=== PATIENT | female | born 1985 | race Caucasian/White ===

== ENCOUNTER → 2018-08-16 | Outpatient (CLI) | payer OTHER ==
[~2018-08-16] MED LIST: CLON0.5T PO; DULO60CA6 PO; ESZO3TAB28 PO; NORE0.356 PO; OXCA300T3 PO
--- NOTE | 2018-08-17 05:22 | PAIN ---
DATE OF SERVICE: 08/16/2018 INITIAL CONSULTATION FOR PAIN CLINIC CHIEF COMPLAINT: Neck and right upper extremity pain. HISTORY OF PRESENT ILLNESS: This is a 32-year-old female who presents with history of pain in the base of the neck and right upper extremity for about the last 4 months now. The patient reports no specific injury or action that she is aware and tear. 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 The patient reports it is constant, sharp, stabbing, throbbing, shooting with numbness and radiating pain, tingling, changes during the day with activity, worse with lifting items, has not had any gross motor loss of the right arm, but does fatigue much more easily than the left. Difficulty with most all activities and waking her from sleep at least twice a night, does not affect her bowel or bladder control, does not affect her ability to walk. The patient has had trigger point injection as well as chiropractic treatment, both of which helped to a moderate extent, but very temporary, but probably less than a day. The patient started hydrocodone as well as tramadol; neither one has decreased the pain significantly. The patient did have MRI scan of the cervical spine showing a C5-C6 level demonstrating mild board posterior disk protrusion asymmetric to the left with mild partial effacement of the anterior subarachnoid space, but with overall midline AP diameter of the spinal canal 11 mm. C6-C7 shows; is thought to have a right foraminal disk protrusion with probable right neural foraminal narrowing. The patient rates her disability rate from 0-10, 10 being the worst, is a 5 with family home responsibilities and recreation, 7 with social activity, occupation, sexual behavior and 0 with self-care, 9 with life support activities. The patient reports no loss of motor function, again significant fatigability. She has not been dropping any items, but she is right handed and this has caused some significant decrease in her ability to perform activities even raising her hand over her head that is on the right side, is difficult also reaching back or just put on a coat or jacket on the sleeve or a shirt is difficult and it causes pain as well. The patient reports occasional headaches with the pain, but no specific pain past the shoulder on the left side, but some in the mid back as well. PAST MEDICAL HISTORY: Significant for irritable bowel syndrome, dizziness, headaches, fibromyalgia and also depression. PREVIOUS SURGERIES: Include wisdom teeth extraction, laser surgery of the eyes and periodontal surgery. CURRENT MEDICATIONS: Include tramadol, naproxen, Trileptal, Lunesta, Cymbalta and Klonopin. ALLERGIES: The patient has no known drug allergies. FAMILY HISTORY: Significant for MS in the paternal grandmother, arthritis in the patient's mother, multitude of mental illness in both mother and father's family by her report. SOCIAL HISTORY: The patient does not drink alcohol, does not smoke, does not use any illegal, illicit or recreational drugs. She is currently from her , has 2 children living at home, lives locally in [place], [place]. 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 REVIEW OF SYSTEMS: The patient's review of systems is positive for those items mentioned in history of present illness. All systems reviewed and otherwise negative. It is complete, full and well documented on the patient's chart. PHYSICAL EXAMINATION: VITAL SIGNS: The patient's blood pressure 114/71, pulse 71, respirations 18, temperature 98.1 degrees Fahrenheit, height is 5 feet 3 inches and weight is 112 pounds. GENERAL: The patient is awake, alert, oriented, appropriate, very pleasant demeanor. HEENT: Head shows normocephalic, atraumatic. Extraocular movements are intact and symmetrical. Oral cavity: Mucous membranes moist and pink. Dentition is intact. NECK: Shows anterior throat supple without palpable lymphadenopathy noted. Swallow reflex symmetrical. CHEST: Shows normal with inspection. Breath sounds clear to auscultation bilaterally. HEART: Shows S1 and S2 clear. No murmurs auscultated. ABDOMEN: Soft, nontender and nondistended. No palpable organomegaly is noted. No rebound or guarding demonstrated. BACK: Shows spine grossly in the midline, normal-appearing cervical lordotic curvature and thoracic kyphotic curvature. Cervical paraspinous muscle shows symmetrical on inspection with palpation, some moderate tenderness diffusely throughout the upper, middle and lower distribution of paraspinous muscles, slightly more on the right than the left, is true into the superior medial and lateral trapezius on the right with very firm and moderately tender with palpation, but only diffusely. Left side is very mildly tender. The patient has good rotational motion of cervical spine, both laterally greater than 45 degrees closer to 90 degrees right and left as well as full extension, full forward flexion without significant increase in pain. The patient's upper extremities show deep tendon reflexes 2+ in the biceps and triceps tendons. Motor exam is approximately 4 on a scale of 5 on the right and 5/5 left deputy attorney general strength, bicep and tricep flexion. Peripheral pulses are 2+ radial distribution. No peripheral edema is noted bilaterally. Upper extremities are warm and dry to touch, equal in color and appearance. Shoulder shrug is strong and intact, but with moderate pain with resistance on the right side into the right shoulder and anterior deltoid and bicep, this is true with abduction of shoulder to 90 degrees as well, but without loss of strength with either maneuver. IMPRESSION: 1. This is a 32-year-old female with approximately a 4-month history of increasing pain at the base of the neck and right upper extremity in a radicular fashion. 2. MRI scan of cervical spine as noted. 3. Irritable bowel syndrome. 4. Depression. PLAN: Options were discussed with the patient including conservative medical management, physical therapy, interventional techniques and she has done physical therapies and some dry needling as well as chiropractic manipulations in the past. She would like to pursue interventional techniques. We discussed a cervical epidural steroid injection using description as well as anatomical models to describe the procedure. The patient will wait for preauthorization with her insurance provider. We will try a Medrol Dosepak in the meantime. The patient also requested a note for her duty to limit her physical activity. We will provide this for her until she can be treated appropriately and has time to respond to the treatment before increasing any physical activity. Also, okay for the patient to have a note for her massage therapist that it is okay to have some massage therapy done on the cervical and thoracic distribution, which actually will be perfectly safe this time without any chiropractic manipulations just massage therapy. The patient was given instruction as well as side effects to be aware with the Medrol Dosepak and this was called into her pharmacy for her. She will return to clinic in approximately 1 week. We will plan on cervical epidural steroid injection on return. MAGI POOL MD DR: TRIP/uriel JOB#: [id number] / [id number]
== END | disposition home or self-care (01) ==
LOC: PNCL 13:37
PROVIDERS: ATTEND Anesthesiology
DX: M54.2 Cervicalgia (principal); M79.641 Pain in right hand; R20.0 Anesthesia of skin; R20.2 Paresthesia of skin; K58.9 Irritable bowel syndrome, unspecified; F32.9 Major depressive disorder, single episode, unspecified
CPT/HCPCS: G0463

== ENCOUNTER → 2018-08-30 | Outpatient (CLI) | payer OTHER ==
[~2018-08-30] MED LIST changes: +IOHEXOL 180 MG/ML 10 ML VIAL. ONE; +methylPREDNISolone ACETATE 40 MG/ML VIAL. ONE; +methylPREDNISolone ACETATE 80 MG/ML VIAL. ONE
--- NOTE | 2018-08-31 03:00 | PAIN ---
DATE OF SERVICE: 08/30/2018 PROGRESS NOTE FOR PAIN CLINIC DIAGNOSES: Cervical radiculopathy with cervical degenerative disk disease. HISTORY OF PRESENT ILLNESS: The patient is a 32-year-old female who returns for followup status post evaluation and preauthorization for cervical epidural steroid injection. The patient reports still significant pain in the neck, right upper extremity in a radicular fashion as it was previously, into the right arm and hand. The patient reports it is tingling, burning, cramping, stabbing, becoming more constant, sharp, aching, radiating, severe, tight and unbearable. The patient reports it is an 8 on a scale of 10 at all times, worst, average and at its least and it is an 8 currently. The patient reports no new motor or sensory deficits. No new changes. PHYSICAL EXAMINATION: VITAL SIGNS: The patient's blood pressure is 120/83, pulse 96, respirations 18 and temperature is 98.0 degrees Fahrenheit. Height is 5 feet 3 inches, weight is 108 pounds. GENERAL: The patient is awake, alert, oriented, appropriate, very pleasant demeanor. HEENT EXAMINATION: Shows normocephalic, atraumatic. Extraocular movements are intact and symmetrical. Oral cavity, mucous membranes are moist and pink. Dentition is intact. NECK: Shows anterior throat supple, without palpable lymphadenopathy noted. Swallow reflex is symmetrical. CHEST: Shows normal on inspection. Breath sounds are clear to auscultation bilaterally. HEART: Shows S1, S2 clear. No murmurs auscultated. ABDOMEN: Soft, nontender and nondistended. No palpable organomegaly is noted. No rebound or guarding demonstrated. BACK: Shows spine grossly in the midline. Normal-appearing cervical lordotic curvature and thoracic kyphotic curvature. Cervical paraspinous muscle shows symmetrical on inspection. On palpation, it shows some moderate tenderness diffusely bilaterally in the inferior aspect of the cervical paraspinous musculature, more on the right than the left, into the superior medial trapezius as well. The patient has good rotational motion of the cervical spine, both laterally as well as extension and flexion, without significant limitation. EXTREMITIES: The patient's upper extremities show deep tendon reflexes at 2+ in the biceps and triceps tendons. Motor exam is approximately 4 on a scale 5 on the right with mortgage operations manager strength, bicep and tricep flexion and 5/5 on the left. Peripheral pulses are 2+ radial distribution. No peripheral edema is noted bilaterally. Options were discussed with the patient. The patient's old chart was reviewed as was her current medication regimen updated. Current review of systems updated today as well. We will proceed with a cervical epidural steroid injection today with fluoroscopic guidance. Risks were again discussed including, but not limited to bleeding, infection, possibility of epidural hematoma, subsequent neurological compromise, dural puncture, headaches, spinal cord and/or nerve damage, side effects of steroid medication and poor results regarding pain control. The patient understands and wishes to proceed. The patient will return to the clinic in approximately 2 weeks for followup. She was counseled on her return appointment, activity level and side effects to be aware of. DIAGNOSES: Cervical radiculopathy with cervical degenerative disk disease. PROCEDURE: Cervical epidural steroid injection in translaminar approach at C6-C7 level using C-arm fluoroscopic guidance under sterile prep and drape using local anesthetic. MEDICATION INJECTED: A total of 120 mg Depo-Medrol plus 5 mL of preservative-free normal saline and 2 mL of contrast. CONDITION AT DISCHARGE: Stable. The patient tolerated the procedure well, had no complications. MAGI POOL MD DR: TRIP/uriel JOB#: [id number] / [id number]
== END | disposition home or self-care (01) ==
LOC: PNCL 14:16
PROVIDERS: ATTEND Anesthesiology
DX: M50.123 Cervical disc disorder at C6-C7 level with radiculopathy (principal)
CPT/HCPCS: 62321; J1030; J1040; Q9965

== ENCOUNTER → 2018-09-13 | Outpatient (CLI) | payer OTHER ==
[~2018-09-13] MED LIST changes: -IOHEXOL 180 MG/ML 10 ML VIAL. ONE; -methylPREDNISolone ACETATE 40 MG/ML VIAL. ONE; -methylPREDNISolone ACETATE 80 MG/ML VIAL. ONE
--- NOTE | 2018-09-13 23:55 | PAIN ---
DATE OF SERVICE: 09/13/2018 DIAGNOSIS: Cervical radiculopathy with cervical degenerative disk disease. HISTORY OF PRESENT ILLNESS: The patient is a 32-year-old female who returns for followup status post cervical epidural steroid injection x 1. The patient reports about 100% improvement in the first week and now about 75% improvement overall, it has been about 2-1/2 weeks since her injection. The patient reports still pain in the base of neck and right shoulder, but she is increased her activity with greater ease and comfort, doing work activities, home activities, household activities, is travelling with greater ease and comfort. The patient reports she is sleeping better at night. The patient reports her pain can still be some days worse than others with pain in the base of the neck, right upper extremity, radiating to the right shoulder, triceps region as well as into the forearm with some numbness and tingling occasionally in the hands, but she says it is aching and tight in the neck. The patient reports it is 8 on a scale of 10 at its worst, 3 on average, 0 at its least and is 3 today. The patient reports no new motor or sensory deficits, no new changes. She is very pleased with her progress thus far continues increasing her activity with her neck and shoulder without difficulty to a severe extent. PHYSICAL EXAMINATION: VITAL SIGNS: The patient's blood pressure is 120/82, pulse 71, respirations 18, temperature is 98.2 degrees Fahrenheit, height is 5 feet 3 inches, weight is 111 pounds. GENERAL: The patient is awake, alert, oriented, appropriate, very pleasant demeanor. HEENT: Head shows normocephalic, atraumatic. Extraocular movements intact and symmetrical. Oral cavity: Mucous membranes moist and pink. Dentition is intact. NECK: Shows anterior throat supple without palpable lymphadenopathy noted. Swallow reflex is symmetrical. CHEST: Shows normal on inspection. Breath sounds clear to auscultation bilaterally. HEART: Shows S1, S2 clear. No murmurs auscultated. ABDOMEN: Soft, nontender, nondistended. No palpable organomegaly is noted. No rebound or guarding demonstrated. BACK: Shows spine grossly in the midline, normal-appearing cervical lordotic curvature and thoracic kyphotic curvature. Cervical paraspinous muscle shows symmetrical on inspection, with palpation shows some moderate tenderness diffusely bilaterally, but only diffusely without radiation. The patient has good rotational motion of cervical spine, both laterally as well as extension and flexion without difficulty. EXTREMITIES: Upper extremities show deep tendon reflexes 2+ in the biceps, triceps tendons. Motor exam is strong with 4 on a scale of 5 with right relief driller strength and 5/5 on the left. Bicep and tricep flexion is 5/5 and equal bilaterally. Peripheral pulses are 2+ radial distribution. No peripheral edema is noted bilaterally. Options were discussed with the patient. The patient's old chart was reviewed as was her current medication regimen updated. Current review of systems updated today as well. We will preauthorize the patient for a second cervical epidural steroid injection. She is doing quite well, still with some persistent radicular pain C6-C7 dermatomal distribution on the right, again significantly improved after the first injection. Once preauthorization is obtained, we will have the patient return and plan on cervical epidural steroid injection #2 at that time. MAGI POOL MD DR: TRIP/uriel JOB#: [id number] / [id number]
== END | disposition home or self-care (01) ==
LOC: PNCL 12:48
PROVIDERS: ATTEND Anesthesiology
DX: M50.10 Cervical disc disorder with radiculopathy, unspecified cervical region (principal)
CPT/HCPCS: G0463

== ENCOUNTER → 2018-09-21 | Outpatient (CLI) | payer OTHER ==
[~2018-09-21] MED LIST changes: +IOHEXOL 180 MG/ML 10 ML VIAL. ONE; +methylPREDNISolone ACETATE 40 MG/ML VIAL. ONE; +methylPREDNISolone ACETATE 80 MG/ML VIAL. ONE
--- NOTE | 2018-09-22 02:51 | PAIN ---
DATE OF SERVICE: 09/21/2018 PROGRESS NOTE FOR PAIN CLINIC: DIAGNOSES: Cervical radiculopathy with cervical degenerative disk disease. HISTORY OF PRESENT ILLNESS: The patient is a 32-year-old female who returns for followup status post cervical epidural steroid injection x 1 with near 100% improvement for the first week or so and the pain returned about 75% improvement overall. The patient was preauthorized for a second injection after last visit and we would like to proceed with that today, so pain in the base of the neck and shoulders bilaterally, right and left, essentially equal and left into the arms, now more into the base of the neck and the upper shoulders. The patient reports it is a 10 on a scale of 10 at its worst, 10 on average and 8 on its least and is an 8 today over the past week. The patient reports it is an aching, sharp, tight, shooting, cramping, stabbing, radiating, becoming more constant, more severe, sometimes unbearable, it is disturbing her from sleep about every 4 hours or so. The patient reports she can usually reposition and get back to sleep. The patient reports no new motor or sensory deficits, no new changes or other complaints. PHYSICAL EXAMINATION: VITAL SIGNS: The patient's blood pressure 125/96, pulse 99, respirations 18, temperature 99.0 degrees Fahrenheit, height is 5 feet 3 inches, weight 108 pounds. GENERAL: The patient is awake, alert, oriented, appropriate, very pleasant demeanor. HEENT: Shows normocephalic, atraumatic. Extraocular movements are intact and symmetrical. Oral cavity: Mucous membranes are moist and pink. Dentition is intact. NECK: Shows anterior throat is supple without palpable lymphadenopathy noted. Swallow reflex is symmetrical. CHEST: Shows normal with inspection. Breath sounds clear to auscultation bilaterally. HEART: Shows S1, S2 clear. No murmurs auscultated. ABDOMEN: Soft, nontender, nondistended. No palpable organomegaly is noted. No rebound or guarding demonstrated. BACK: Shows spine grossly in the midline. Normal appearing thoracic kyphosis and lumbar lordotic curvature. Cervical lordotic curvature as well. Cervical paraspinous muscle shows symmetrical on inspection, with palpation shows some moderate tenderness diffusely in the mid to low cervical paraspinous musculature without significant radiation. The patient does show good rotational motion of cervical spine; however, both with lateral rotation greater than 45 degrees, closer to 90 degrees as well as full extension and forward flexion without significant pain reported. EXTREMITIES: The patient's upper extremities show deep tendon reflexes 2+ in the biceps, triceps tendons. Motor exam is approximately 4 on a scale 5 on the right with seamark advanced operator maintainer strength and 5/5 on the left. Peripheral pulses are 2+ radial distribution. No peripheral edema is noted bilaterally. Options were discussed with the patient. The patient's old chart was reviewed as well as her current medication regimen updated. Current review of systems updated today as well. We will proceed with second in the series of cervical epidural steroid injection today with fluoroscopic guidance. Risks were again discussed including, but not limited to bleeding, infection, possibility of epidural hematoma, subsequent neurologic compromise, dural puncture, headaches, spinal cord and/or nerve damage, side effects of steroid medication and poor results regarding pain control. The patient understands and wished to proceed. The patient will return to clinic in approximately 2 weeks for followup, was counseled as to return appointment, activity level and side effects to be aware of. DIAGNOSES: Cervical radiculopathy with cervical degenerative disk disease. PROCEDURE: Cervical epidural steroid injection, translaminar approach at C6-C7 level using C-arm fluoroscopic guidance under sterile prep and drape using local anesthetic. MEDICATION INJECTED: A total of 120 mg Depo-Medrol plus 5 mL of preservative-free normal saline and 2 mL of contrast. CONDITION AT DISCHARGE: Stable. The patient tolerated procedure well, had no complications. MAGI POOL MD DR: TRIP/uriel JOB#: [id number] / [id number]
== END | disposition home or self-care (01) ==
LOC: PNCL 13:05
PROVIDERS: ATTEND Anesthesiology
DX: M50.123 Cervical disc disorder at C6-C7 level with radiculopathy (principal)
CPT/HCPCS: 62321; J1030; J1040; Q9965

== ENCOUNTER → 2018-10-31 | Outpatient (CLI) | payer OTHER ==
--- NOTE | 2018-10-31 23:16 | PAIN ---
DATE OF SERVICE: 10/31/2018 PROGRESS NOTE FOR PAIN CLINIC DIAGNOSIS: Cervical radiculopathy with cervical degenerative disk disease. HISTORY OF PRESENT ILLNESS: The patient is a 32-year-old female who returns for followup status post cervical epidural steroid injection x 2. The patient 100% improvement for about 3 weeks following the injection, but now the pain has returned over the past week or so in the base of the neck and right upper extremity, fairly significantly in the right shoulder blade, right posterior aspect of the arm, anterior aspect of the biceps, into the forearm both anteriorly and posteriorly, more in the front and the fingers and hand on the right side. The patient reports she has been dropping things with the right hand again over the past week, increased fatigability with it and increased pain. The patient reports it is tingling, cramping, stabbing, aching, sharp, tight and shooting, radiating and becoming more severe, more constant at times and unbearable. The patient reports it is 10 on a scale of 10 at its worst, 10 on average, 3 at its least and is 10 today. The patient reports no new motor or sensory deficits, no new changes, does sleep well at night, it does not awaken her from sleep. PHYSICAL EXAMINATION: VITAL SIGNS: The patient's blood pressure is 117/79, pulse 81, respirations 18, temperature 98.2 degrees Fahrenheit, height is 5 feet 3 inches, weighs 112 pounds. GENERAL: The patient is awake, alert, oriented, appropriate, very pleasant demeanor. HEENT: Head shows normocephalic, atraumatic. Extraocular movements intact and symmetrical. Oral cavity: Mucous membranes moist and pink. Dentition is intact. NECK: Shows anterior throat supple without palpable lymphadenopathy noted. Swallow reflex symmetrical. CHEST: Shows normal with inspection. Breath sounds clear to auscultation bilaterally. HEART: Shows S1, S2 clear. No murmurs auscultated. ABDOMEN: Soft, nontender, nondistended. No palpable organomegaly is noted. No rebound or guarding demonstrated. BACK: Shows spine grossly in the midline. Cervical lordotic curvature is intact as is thoracic kyphotic curvature. Cervical paraspinous muscle shows symmetrical with inspection; with palpation shows some moderate tenderness diffusely more on the right than the left in the inferior aspect of the cervical paraspinous musculature as well as the superior trapezius and lateral trapezius, greater on the right than the left, but without specific trigger points or radiation. The patient has good rotational motion of cervical spine, slightly guarded with extension, not with forward flexion; right and left lateral rotation is performed without significant increase in pain. EXTREMITIES: Upper extremities show deep tendon reflexes 2+ in the biceps and triceps tendons. Motor exam is approximately 4 on a scale of 5 with right recycling operations manager strength, 5/5 on the left. Peripheral pulses are 2+ in radial distribution. No peripheral edema is noted bilaterally. Options were discussed with the patient. The patient's old chart was reviewed as was her current medication regimen updated. Current review of systems updated today as well. We will proceed with a third in the series of cervical epidural steroid injection today with fluoroscopic guidance. Risks were again discussed including, but not limited to bleeding, infection, possibility of epidural hematoma, subsequent neurologic compromise, dural puncture, headaches, spinal cord and/or nerve damage, side effects of steroid medication and poor results regarding pain control. The patient understands and wished to proceed. The patient will return to clinic in approximately 2 weeks for followup, was counseled as to return appointment, activity level, and side effects to be aware of. DIAGNOSIS: Cervical radiculopathy with cervical degenerative disk disease. PROCEDURE: Cervical epidural steroid injection under C-arm fluoroscopic guidance under sterile prep and drape using local anesthetic. MEDICATION INJECTED: A total of 120 mg Depo-Medrol, total of 5 mL of preservative-free normal saline and 2 mL of contrast at the C6-C7 level. CONDITION AT DISCHARGE: Stable. The patient tolerated the procedure well, had no complications. MAGI POOL MD DR: TRIP/uriel JOB#: [id number] / [id number]
== END ==
LOC: PNCL 13:10
PROVIDERS: ATTEND Anesthesiology
DX: M50.123 Cervical disc disorder at C6-C7 level with radiculopathy (principal); M54.2 Cervicalgia
CPT/HCPCS: 62321; J1030; J1040; Q9965